=== PATIENT | male | born 1975 | race Caucasian/White ===

== ENCOUNTER 2017-07-01 00:09 | Emergency (ER) | payer OTHER ==
[2017-07-01 00:38] VITALS: BP 133/78; PULSE 91; TEMP 99.8; BMI 29.5
[2017-07-01] MEDS ORDERED: SODIUM CHLORIDE 0.9% 1000 ML INFUS.BAG IV STA (00:55)
--- NOTE | 2017-07-01 01:27 | PDOC ---
History of Present Illness - General History Source: Patient Exam Limitations: No Limitations - History of Present Illness Initial Comments: 07/01/17 01:30 The patient is a 41 year old male with no significant PMH who presents to the emergency department with fever for 1 day. The patient had a fever TMax 102 at home. The patient also endorses associated chills, lower abdominal pain, R flank pain and generalized body aches. The patient denies sore throat or cough. The patient took Motrin and Tylenol at home. Patients temperature is 99.8F in the ER. The patient denies chest pain, shortness of breath, headache and dizziness. Denies nausea, vomit, diarrhea and constipation. Denies dysuria, frequency, urgency and hematuria. Allergies: NKA Past surgical history: None reported. Social history: No reported alcohol, drug, or cigarette use. PCP: Dr. Combs <Stefany Marie - Last Filed: 07/01/17 01:30> <Allyssa Esqueda - Last Filed: 07/01/17 02:07> - General Chief Complaint: Cold Symptoms Stated Complaint: FEVER Time Seen by Provider: 07/01/17 00:33 Past History <Stefany Marie - Last Filed: 07/01/17 01:30> - Suicide/Smoking/Psychosocial Hx Smoking History: Never smoked Have you smoked in the past 12 months: No Information on smoking cessation initiated: No Hx Alcohol Use: No Drug/Substance Use Hx: No Substance Use Type: None <Allyssa Esqueda - Last Filed: 07/01/17 02:07> - Past Medical History Allergies/Adverse Reactions: Allergies Allergy/AdvReac Type Severity Reaction Status Date / Time No Known Allergies Allergy Verified 07/01/17 00:30 Home Medications: Ambulatory Orders Oxycodone HCl/Acetaminophen [Percocet 5/325 -] 1 tab PO Q6H PRN #10 tablet 05/07 Review of Systems - Review of Systems Able to Perform ROS?: Yes Comments:: 07/01/17 01:33 "GENERAL/CONSTITUTIONAL: (+) Fever. (+) Generalized body aches. (+) Chills. HEAD, EYES, EARS, NOSE AND THROAT: No change in vision. No ear pain or discharge. No sore throat. CARDIOVASCULAR: No chest pain or shortness of breath. RESPIRATORY: No cough, wheezing, or hemoptysis. GASTROINTESTINAL: (+) Lower abdominal pain. No nausea, vomiting, diarrhea or constipation. GENITOURINARY: No dysuria, frequency, or change in urination. BACK: (+) R flank pain. MUSCULOSKELETAL: No joint or muscle swelling or pain. No neck or back pain. SKIN: No rash NEUROLOGIC: No headache, vertigo, loss of consciousness, or change in strength/ sensation. ENDOCRINE: No increased thirst. No abnormal weight change. HEMATOLOGIC/LYMPHATIC: No anemia, easy bleeding, or history of blood clots. ALLERGIC/IMMUNOLOGIC: No hives or skin allergy. " <Stefany Marie - Last Filed: 07/01/17 01:30> *Physical Exam - Vital Signs Last Vital Signs Temp Pulse Resp BP Pulse Ox 99.8 F H 91 H 18 133/78 98 07/01/17 00:30 07/01/17 00:30 07/01/17 00:30 07/01/17 00:30 07/01/17 00:30 - Physical Exam Comments: 07/01/17 01:31 GENERAL: (+) Diaphoretic. Awake, alert, and fully oriented, in no acute distress. HEAD: No signs of trauma EYES: PERRLA, EOMI, sclera anicteric, conjunctiva clear ENT: (+) Oropharynx with exudates. Auricles normal inspection, hearing grossly normal, nares patent. Moist mucosa NECK: Nontender, no stepoffs, Normal ROM, supple, no lymphadenopathy, JVD, or masses LUNGS: Breath sounds equal, clear to auscultation bilaterally. No wheezes, and no crackles HEART: (+) Tachycardic. Regular rhythm, normal S1 and S2, no murmurs, rubs or gallops ABDOMEN: (+) Suprapubic discomfort. Soft, nontender, normoactive bowel sounds. No guarding, no rebound. No masses EXTREMITIES: Normal range of motion, no edema. No clubbing or cyanosis. No cords, erythema, or tenderness NEUROLOGICAL: Cranial nerves II through XII intact. 5/5 strength and sensation in all extremities, Normal speech, normal gait, normal cerebellar function SKIN: Warm, Dry, normal turgor, no rashes or lesions noted. <Stefany Marie - Last Filed: 07/01/17 01:30> - Vital Signs Last Vital Signs Temp Pulse Resp BP Pulse Ox 99.8 F H 91 H 18 133/78 98 07/01/17 00:30 07/01/17 00:30 07/01/17 00:30 07/01/17 00:30 07/01/17 00:30 <Allyssa Esqueda - Last Filed: 07/01/17 02:07> ED Treatment Course - RADIOLOGY Radiology Studies Ordered: Category Date Time Status CHEST X-RAY PORTABLE* [RAD] Stat Radiology 07/01/17 00:55 Taken <Allyssa Esqueda - Last Filed: 07/01/17 02:07> *DC/Admit/Observation/Transfer - Attestations Scribe Attestion: 07/01/17 01:35 Documentation prepared by Stefany Marie, acting as medical surgical tech for Allyssa Esqueda MD. <Stefnay Marie - Last Filed: 07/01/17 01:30> <Allyssa Esqueda - Last Filed: 07/01/17 02:07> Diagnosis at time of Disposition: Strep pharyngitis Fever Qualifiers: Fever type: due to other condition Qualified Code(s): R50.81 - Fever presenting with conditions classified elsewhere - Discharge Dispostion Disposition: HOME Condition at time of disposition: Stable - Referrals Referrals: Harinder Combs MD [Primary Care Provider] - - Patient Instructions Printed Discharge Instructions: DI for Strep Throat Additional Instructions: PLEASE TAKE TYLENOL OR MOTRIN FOR FEVER OR PAIN REST DRINK PLENTY OF FLUID RETURN FOR ANY WORSENING SYMPTOMS Print Language: KOREAN - Post Discharge Activity
[2017-07-01] MEDS ORDERED: PENICILLIN G BENZATHINE 1,200,000 UNIT/2 ML PFS IM ONE (01:45)
[2017-07-01 01:46] LABS: URINE APPEARANCE CLEAR; URINE BILIRUBIN NEGATIVE (<2.0 mg/dL); URINE BLOOD NEGATIVE (NEGATIVE); URINE COLOR YELLOW; URINE GLUCOSE (UA) NEGATIVE (NEGATIVE); URINE KETONE TRACE (NEGATIVE); URINE LEUK ESTERASE NEGATIVE (NEGATIVE); URINE NITRITE NEGATIVE (NEGATIVE)
[2017-07-01 01:48] LABS: URINE PROTEIN 1+ (NEGATIVE)
[2017-07-01] MEDS ORDERED: PENICILLIN G BENZATHINE 2,400,000 UNIT/4 ML PFS ONE (01:48)
[2017-07-01 01:57] LABS: URINE MUCUS MANY
== END 2017-07-01 02:38 | disposition home or self-care (01) ==
LOC: JER 00:09
DX: J02.0 Streptococcal pharyngitis (principal); B95.0 Streptococcus, group A, as the cause of diseases classified elsewhere
CPT/HCPCS: 71045-TC-FY; 81003; 81015; 87070; 87077; 87086; 87430; 87804; 96372; 99281-25